=== PATIENT | female | born 1975 | race Caucasian/White ===

== ENCOUNTER 2020-07-01 13:03 | Outpatient (CLI) | payer BC, SELFPAY ==
--- NOTE | ~2020-07-01 | MR_ITS ---
EXAMINATION: MR thoracic spine wo con DATE: 07/01/2020 14:25 INDICATION: Dorsalgia TECHNIQUE: Magnetic resonance imaging (MRI) of the thoracic spine was performed without intravenous c ontrast. Sagittal localizer T1-weighted FSE of the cervicothoracic spine was obtained. Thoracic spine sequences included sagittal T2-weighted FSE, sagittal T1-weighted SE, Sagittal T2-weighted FS FSE, a nd axial T2-weighted FSE. COMPARISON: None FINDINGS: Alignment is normal.Vertebral body heights are normal.T1 and T2 hyperintense hemangiomas at T7 and T9 .Otherwise normal marrow signal. Disc heights and signal are normal. There is normal spinal cord sign al. The conus terminates at L1. Mild multilevel thoracic facet osteoarthritis. No neural foraminal st enosis. Small right paracentral disc protrusion at T11-T12 with negligible central canal stenosis. 1. 8 cm T2 hyperintense likely cystic lesion at the right thyroid lobe. IMPRESSION: 1. Negligible thoracic spondylosis. 2. 1.8 cm right thyroid lesion most likely cystic given the high T2 signal which would favor a benign etiology but would recommend thyroid ultrasound for more definitive determination. Reviewed, dictated and finalized at location A. IMPRESSION: 1. Negligible thoracic spondylosis. 2. 1.8 cm right thyroid lesion most likely cystic given the high T2 signal whic h would favor a benign etiology but would recommend thyroid ultrasound for more definitive determination.
--- NOTE | ~2020-07-01 | MR_ITS ---
EXAMINATION: MR shoulder RT wo con DATE: 07/01/2020 14:24 INDICATION: Right shoulder pain TECHNIQUE: Magnetic resonance imaging (MRI) of the right shoulder was performed without intravenous c ontrast. Sequences included axial PD-weighted FS FSE, coronal oblique PD-weighted FS FSE, coronal obl ique T2-weighted FS FSE, sagittal PD-weighted FS FSE, and sagittal T1-weighted SE. COMPARISON: None. FINDINGS: Coracoacromial arch: The acromion undersurface is curved in morphology (type II). The coracoacromial ligament is normal. A cromioclavicular joint is normal. Rotator cuff: Mild tendinopathy without discrete tear at the conjoined portion of the supraspinatus and infraspinat us tendons. The teres minor and subscapularis tendons are normal. The subscapularis tendon is normal. Normal rotator cuff muscle bulk and signal. Biceps tendon, glenoid labrum and glenohumeral cartilage: Long head of the biceps tendon is normal. Tear at the 12:00-10:30 position of the posterior superior glenoid labrum. Normal anterosuperior sublingual foramen. Glenohumeral cartilage is normal. Fluid: Physiologic amount of fluid in the glenohumeral joint and biceps tendon sheath. No loose osteochondra l bodies. Mild increased fluid signal in the subacromial/subdeltoid bursa consistent with minimal bur sitis. Bones: Normal marrow signal with no edema, fracture or abnormal marrow replacing process. IMPRESSION: 1. Tear at the posterior superior glenoid labrum. 2. Mild tendinopathy without discrete tear at the conjoined portion of the supraspinatus and infraspi natus tendons. 3. Minimal subacromial/subdeltoid bursitis. Reviewed, dictated and finalized at location A. IMPRESSION: 1. Tear at the posterior superior glenoid labrum. 2. Mild tendinopathy without discrete tear at the conjoined portion of the supr aspinatus and infraspinatus tendons. 3. Minimal subacromial/subdeltoid bursitis.
== END 2020-07-01 13:04 ==
PROVIDERS: Visit Provider Nurse Practitioner Family
DX: M25.511 Pain in right shoulder (principal); M54.9 Dorsalgia, unspecified; M47.814 Spondylosis without myelopathy or radiculopathy, thoracic region; E07.9 Disorder of thyroid, unspecified; S43.431A Superior glenoid labrum lesion of right shoulder, initial encounter; M75.81 Other shoulder lesions, right shoulder; M75.51 Bursitis of right shoulder
CPT/HCPCS: 72146; 73221

== ENCOUNTER → 2021-03-23 10:15 | Outpatient (CLI) | payer BC, SELFPAY ==
[2021-03-23 19:53] LABS: SARS-CoV-2 RNA PCR Negative
== END ==
PROVIDERS: PCP Internal Medicine; Visit Provider Internal Medicine
DX: Z20.822 Contact with and (suspected) exposure to COVID-19 (principal)
CPT/HCPCS: C9803; U0003; U0005

== ENCOUNTER 2021-12-27 10:08 | Emergency (ER) | payer BC, SELFPAY ==
--- NOTE | 2021-12-27 10:46 | ED.URI ---
HPI - URI/Sore Throat General Chief Complaint: Upper Respiratory Infection Stated Complaint: sorethroat,bilateral ear pain Time Seen by Provider: 12/27/21 10:49 Source: patient Mode of arrival: ambulatory Limitations: no limitations History of Present Illness HPI Narrative: Ms. Rivera is a 46-year-old female patient presenting to the clinic today with complaints of sore throat bilateral , runny nose,and ear pain for a few days. She reports no fever or chills. She is having difficulty swallowing and feels a sore throat with swollen with bilateral ear pain. She denies any known sick contact MD elicited complaint: sore throat, nasal congestion and other ( ear pain) Related Data Home Medications Medication Instructions Recorded Confirmed desvenlafaxine 100 mg 100 mg PO DAILY 04/13/20 12/27/21 tablet,extended release 24 hr lisdexamfetamine 70 mg capsule 70 mg PO DAILY 04/13/20 12/27/21 (Vyvanse) Allergies Allergy/AdvReac Type Severity Reaction Status Date / Time No Known Allergies Allergy Verified 12/27/21 10:57 Review of Systems Review of Systems: Pertinent positives per HPI. Patient denies any fever, chills, rash, headache, visual changes, dizziness, cough, shortness of breath, chest pain, palpitations, nausea, vomiting, diarrhea, constipation, abdominal pain, or any urinary issues. [facility] Past Medical History Medical History Bilateral elbow joint pain Carpal tunnel syndrome, bilateral Cubital tunnel syndrome Lateral epicondylitis Right shoulder pain Rotator cuff tear Upper back pain on right side Upper extremity pain Wears glasses Surgical History Surgical History History of tubal ligation Family History Family History Other Depression Diabetes mellitus FH: kidney cancer Heart disease High cholesterol Hypertension Social History Social History Smoking packs per day: 1 Smoking cigarettes per day: 20.0 Years smoked: 14 Smoking pack-years: 14.00 Smoking end date: 03/06/10 Alcohol intake: current Drinks per week: 3 Substance use: never Substance use type: does not use Gender identity (if verbalized by the patient): Female Comments At the time of my signature, I reviewed and agree with the nursing past medical, surgical, social, and family history. There is no relevant family history pertinent to the patient complaint. Exam Narrative: General: Well-developed, well nourished, in no apparent distress Head: Normocephalic, atraumatic Eyes: Pupils equally round and reactive to light bilaterally, EOM intact, sclera and conjunctive clear, no discharge, lids normal Ears: TMs intact, dull, red, ear canals clear, no drainage, grossly hearing normal. Nose: Nares patent, clear nasal discharge, mild inflammation, no sinus tenderness. Mouth: Oral pharynx without lesions or masses, good dentition, MMM. oropharynx red postnasal drip Neck: Supple, trachea midline, no enlargement of anterior or posterior cervical nodes, no thyroid masses or goiter palpable. Cardio: Regular rate and rhythm, s1 and s2 normal, no murmur appreciated. Resp: Clear to auscultation bilaterally, no rhonchi, rales, wheezing or rubs Course Course Emergency Course: Portions of this record may have been created with voice recognition software. Level of Care: Express Care Visit Vital Signs Vital signs: Vital signs reviewed MDM - URI/Sore Throat MDM Narrative Medical decision making narrative: At the time of visit patient is resting comfortably on the exam table. Strep test was obtained in the clinic was positive. Will send prescription for amoxicillin and viscous lidocaine for the patient. Supportive measures were discussed with the nacho
[2021-12-27 10:51] VITALS: BP 122/77; PULSE 99; RESP 18; TEMP 36.8; O2SAT 99
== END 2021-12-27 11:15 | disposition home or self-care (01) ==
PROVIDERS: Emergency Provider Nurse Practitioner Family; PCP Internal Medicine
DX: J02.0 Streptococcal pharyngitis (principal); F17.210 Nicotine dependence, cigarettes, uncomplicated
CPT/HCPCS: 87880; 99213; G0463

== ENCOUNTER 2022-04-13 18:39 | Emergency (ER) | payer BC, SELFPAY ==
--- NOTE | ~2022-04-13 | XR_ITS ---
EXAMINATION: XR foot RT min 3V DATE: 04/13/2022 19:30 INDICATION: Right foot pain TECHNIQUE: Dorsoplantar, two oblique and lateral views of the right foot were obtained. COMPARISON: None. FINDINGS: Alignment is normal. No fracture. Joint spaces are normal. No erosions or periosteal reaction. Soft t issue swelling plantar/lateral to the fifth metatarsophalangeal joint. No radiopaque foreign bodies. IMPRESSION: 1. No osseous abnormality. Reviewed, dictated and finalized at location A. ELHEAD INSPECTOR IMPRESSION: 1. No osseous abnormality.
[2022-04-13 18:55] VITALS: BP 162/79; PULSE 87; RESP 16; TEMP 37; O2SAT 100
--- NOTE | 2022-04-13 19:18 | ED.LOWEXIN ---
HPI - Extremity Injury (Lower) General Chief Complaint: Extremity Injury, Lower Stated Complaint: rt foot pain Time Seen by Provider: 04/13/22 19:18 Source: patient Mode of arrival: ambulatory Limitations: no limitations History of Present Illness HPI Narrative: 47 y/o female presented for complaint of right foot pain and swelling for 2 weeks. Denies injury or recent overuse. Pain is worse to the ball of her foot when ambulating, and radiates to the base of the toes on the top of the foot. Pain radiates to lateral ankle. She endorses mild swelling. She is taking ibuprofen for pain. Rates pain 8/10 when ambulating or pressure applied to the ball of foot. Pain worsens throughout the day. Denies numbness, tingling, weakness. Denies heel pain. She reports pain feels better with shoes on. Related Data Home Medications Medication Instructions Recorded Confirmed desvenlafaxine 100 mg 100 mg PO DAILY 04/13/20 04/13/22 tablet,extended release 24 hr dexmethylphenidate 10 mg tablet 10 mg PO DAILY 04/13/22 04/13/22 Allergies Allergy/AdvReac Type Severity Reaction Status Date / Time No Known Allergies Allergy Verified 04/13/22 18:57 Review of Systems Review of Systems: CONSTITUTIONAL: Denies body aches, fever, chills CARDIOVASCULAR: Denies chest pain, palpitations, or edema. RESPIRATORY: Denies cough or dyspnea. SKIN: Denies rash, itching, or wounds. MUSCULOSKELETAL: Per HPI NEUROLOGIC: Denies headache, numbness, tingling, or weakness. All systems reviewed & are unremarkable except as noted in HPI and below PMFSH Past Medical History Medical History Bilateral elbow joint pain Carpal tunnel syndrome, bilateral Cubital tunnel syndrome Lateral epicondylitis Right shoulder pain Rotator cuff tear Upper back pain on right side Upper extremity pain Wears glasses Surgical History Surgical History History of tubal ligation Family History Family History Other Depression Diabetes mellitus FH: kidney cancer Heart disease High cholesterol Hypertension Social History Social History Smoking packs per day: 1 Smoking cigarettes per day: 20.0 Years smoked: 14 Smoking pack-years: 14.00 Smoking end date: 03/06/10 Alcohol intake: current Drinks per week: 3 Substance use: never Substance use type: does not use Gender identity (if verbalized by the patient): Female Comments At time of signature, I have reviewed and agree with nursing past medical, surgical, social and family history unless otherwise noted. Please see nursing chart for further information. There is no relevant family history pertinent to the presenting complaint Exam Narrative: GENERAL: Well-appearing, well-nourished, and in no acute distress. CHEST: Speaks in full sentences. No respiratory distress. HEART: Regular rate and rhythm. Normal and equal peripheral pulses. EXTREMITIES: Mild swelling to the dorsal aspect of the base of the 3rd through 5th metatarsals. reports pain to this site with palpation of the plantar surface of the foot. No bruising or redness noted. No ankle swelling. Foot has normal strength and sensation, normal range of motion without pain. No open wounds or obvious deformity; alignment normal, pulse palpable and equal bilaterally, skin warm, dry, pink. Capillary refill less than 3 seconds. SKIN: Warm, dry, no rash. Course Course Emergency Course: Patient is aware of diagnosis, understands and agrees to treatment plan. Anticipatory guidance given. Patient agrees to follow-up as directed and is aware of reasons to seek care at the emergency department. Portions of this record may have been created with voice recognition software Level of Care: [facility] Visit V
== END 2022-04-13 20:23 | disposition home or self-care (01) ==
PROVIDERS: Emergency Provider Nurse Practitioner Family; PCP Internal Medicine
DX: M79.671 Pain in right foot (principal); F17.210 Nicotine dependence, cigarettes, uncomplicated
CPT/HCPCS: 73630; 99213; G0463

== ENCOUNTER 2023-02-01 12:41 | Outpatient (CLI) | payer OTHER, SELFPAY ==
--- NOTE | ~2023-02-01 | MM_ITS ---
EXAMINATION: MM screening sarah BI w muna HISTORY: Screening mammogram TECHNIQUE: Craniocaudal and mediolateral oblique 3-D tomosynthesis images were obtained and synthetic 2-D images were generated. CAD analysis was submitted and interpreted. COMPARISON: None; baseline examination BREAST PARENCHYMAL COMPOSITION: The breasts are heterogeneously dense, which may obscure small masses . FINDINGS: There is bilateral fibroglandular asymmetry. Bilateral diagnostic mammography and bilateral breast ultrasound examination are recommended. IMPRESSION: 1. Bilateral fibroglandular asymmetry 2. Bilateral diagnostic mammography and breast ultrasound examination are recommended BI-RADS Category 0: Incomplete: Needs additional imaging evaluation. Reviewed, dictated and finalized at location A. VERY MANAGER IMPRESSION: 1. Bilateral fibroglandular asymmetry 2. Bilateral diagnostic mammography and breast ultrasound examination are recom mended BI-RADS Category 0: Incomplete: Needs additional imaging evaluation.
== END 2023-02-01 12:42 | disposition home or self-care (01) ==
LOC: CHSIMG 12:43
PROVIDERS: PCP Internal Medicine; Visit Provider Internal Medicine
DX: Z12.31 Encounter for screening mammogram for malignant neoplasm of breast (principal); R92.8 Other abnormal and inconclusive findings on diagnostic imaging of breast
CPT/HCPCS: 77063; 77067

== ENCOUNTER 2023-02-13 09:37 | Outpatient (CLI) | payer OTHER, SELFPAY ==
--- NOTE | ~2023-02-13 | MMUS_ITS ---
EXAMINATION: MM diagnostic sarah BI w muna, US breast BI complete HISTORY: Follow-up bilateral breast asymmetries TECHNIQUE: Additional 3-D tomosynthesis images of the breasts were performed and synthetic 2-D images were generated. CAD analysis was submitted and interpreted. High resolution bilateral complete breas t ultrasound was performed. COMPARISON: 02/01/2023 BREAST PARENCHYMAL COMPOSITION: The breasts are heterogeneously dense, which may obscure small masses FINDINGS: MAMMOGRAPHIC FINDINGS: There are no suspicious masses, calcifications or architectural distortion in either breast to sugges t malignancy. ULTRASOUND: Complete bilateral US of all 4 quadrants of the breasts and retroareolar region was reviewed. Normal heterogeneous echotexture without focal solid or cystic mass in either breast. IMPRESSION: 1. No evidence for malignancy in either breast. 2. Routine yearly screening mammogram and regular clinical breast examination are recommended. BI-RADS CATEGORY 1 - NEGATIVE Reviewed, dictated and finalized at location A. [employer]ANCE AGENCY OWNER IMPRESSION: 1. No evidence for malignancy in either breast. 2. Routine yearly screening mammogram and regular clinical breast examination a re recommended. BI-RADS CATEGORY 1 - NEGATIVE
== END 2023-02-13 09:38 | disposition home or self-care (01) ==
LOC: CHSIMG 09:41
PROVIDERS: PCP Internal Medicine; Visit Provider Internal Medicine
DX: R92.8 Other abnormal and inconclusive findings on diagnostic imaging of breast (principal)
CPT/HCPCS: 76641; 77062; 77066; G0279